=== PATIENT | female | born 1960 | race Caucasian/White ===

== ENCOUNTER → 2020-05-10 19:43 | Outpatient (ROUT) | payer OTHER, SELFPAY ==
[2020-05-10 19:59] LABS: Add Manual Diff / Slide Review NO; Basophils Absolute Auto 0 /uL (0-100); Basophils Percent Auto 0.4 % (0-2); Eosinophils Absolute Auto 100 /uL (0-450); Eosinophils Percent Auto 0.8 % (2-4); Hematocrit 41.2 % (36-46); Hemoglobin 13.8 g/dL (12.0-16.0); Lymphocytes Absolute Auto 1900 /uL (1100-4500); Lymphocytes Percent Auto 29.5 % (25-40); Mean Corpuscular HGB Conc 33.4 % (30-36); Mean Corpuscular Hemoglobin 29.2 PG (26-34); Mean Corpuscular Volume 87.2 fL (80-100); Monocytes Absolute Auto 600 /uL (0-900); Monocytes Percent Auto 8.5 % (3-14); Neutrophils Absolute Auto 3900 /uL (1500-7000); Neutrophils Percent Auto 60.8 % (50-75); Platelet Count 180 X10^3/uL (150-400); Red Blood Cell Count 4.72 X10^6/uL (4.0-5.2); Red Cell Distribution Width 12.9 % (11.6-14.8); White Blood Cell Count 6.5 X10^3/uL (4.5-11.0)
[2020-05-10 20:05] LABS: Alanine Aminotransferase 32 IU/L (<35); Albumin 4.2 g/dL (3.5-5.0); Albumin Globulin Ratio 1.8 (1.0-2.8); Alkaline Phosphatase 76 U/L (38-126); Aspartate Aminotransferase 33 IU/L (14-36); BUN Creatinine Ratio 22.6 (6-22); Bilirubin Total 0.5 mg/dL (0.2-1.3); Blood Urea Nitrogen 21 mg/dL (7-17); Calcium 9.8 mg/dL (8.4-10.2); Carbon Dioxide 26 mmol/L (22-32); Chloride 107 mmol/L (98-107); Cholesterol 187 mg/dL (140-199); Estimated Glomerular Filt Rate > 60.0 mL/min (>60); Globulin 2.3 g/dL (1.7-4.1); Glucose 93 mg/dL (70-100); HDL Cholesterol 69 mg/dL (40-60); HEMOLYSIS < 15 (0-50); LDL Cholesterol Calculated 84 mg/dL (<100); Potassium 4.2 mmol/L (3.4-5.1); Sodium 138 mmol/L (137-145); Total Protein 6.5 g/dL (6.3-8.2); Triglycerides 171 mg/dL (35-150)
[2020-05-10 20:13] LABS: NT-proBNP (BNP-Adult 18+) 121 pg/mL (<125)
[2020-05-10 20:20] LABS: Vitamin D 25 Hydroxy (D3) 23.6 ng/mL (30.0-100.0)
== END ==
PROVIDERS: Visit Provider Internal Medicine
DX: Z13.220 Encounter for screening for lipoid disorders (principal); Z85.820 Personal history of malignant melanoma of skin; I10 Essential (primary) hypertension; G47.33 Obstructive sleep apnea (adult) (pediatric); R60.9 Edema, unspecified
CPT/HCPCS: 80053; 80061; 82306; 83880; 84443; 85025

== ENCOUNTER → 2020-06-30 15:45 | Outpatient (ROUT) | payer OTHER, SELFPAY ==
[2020-06-30 16:15] LABS: Cholesterol 187 mg/dL (140-199); HDL Cholesterol 74 mg/dL (40-60); LDL Cholesterol Calculated 98 mg/dL (<100); Triglycerides 76 mg/dL (35-150)
== END ==
PROVIDERS: Visit Provider Internal Medicine
DX: Z13.220 Encounter for screening for lipoid disorders (principal)
CPT/HCPCS: 80061

== ENCOUNTER → 2020-09-01 08:30 | Outpatient (CLI) | payer OTHER, SELFPAY ==
--- NOTE | 2020-09-01 | DI.ECHO.S_ITS ---
[facility]---------+ [facility] +---------+ : : [address] : : : [place] : : : : [id number] : : : : Phone: [phone]+ Echocardiogram Report + + :Name: ELAINE NORRIS Study Date: 09/01/2020 Height: 70.5 in: :[facility] Weight: 275 lb : : Gender: Female BSA: 2.4 m2 : :: 1960 Age: 59 yrs BP: 142/88 mmHg: :Reason For Study: HYPERTENSION : :Ordering Physician: NICHELLE EVANS : :L Performed By: Laura Tomlinson : :Referring: NICHELLE EVANS L : + + Interpretation Summary The left ventricle is normal in size and wall thickness. Left ventricular systolic function appears normal without focal wall motion abnormalities. The ejection fraction is estimated to be 60-65%. Diastolic parameters suggest a relaxation abnormality of the left ventricle, consistent with probable normal filling pressures. The right ventricle is normal in size and function. Pulmonary artery pressures cannot be estimated because of the lack of a measurable TR jet velocity but the IVC suggests a CVP of around 3 mmHg. The left atrium is mildly dilated. Right atrial size is normal. There is mild mitral regurgitation. There is no other significant valvular heart disease. The aortic root is normal size. Procedure: A two-dimensional transthoracic echocardiogram with color flow and Doppler was performed. The study quality was technically adequate. There is no prior echocardiogram noted for this patient. The patient was in sinus rhythm with heart rates between 66-72 bpm during the exam. Left Ventricle: The left ventricle is normal in size and wall thickness. Left ventricular systolic function appears normal without focal wall motion abnormalities. The ejection fraction is estimated to be 60-65%. Diastolic parameters suggest a relaxation abnormality of the left ventricle, consistent with probable normal filling pressures. Right Ventricle: The right ventricle is normal in size and function. Atria: The left atrium is mildly dilated. Right atrial size is normal. There is no Doppler evidence for an interatrial shunt. Mitral Valve: The mitral valve is normal in structure and function. There is mild mitral regurgitation. Aortic Valve: The aortic valve is trileaflet. The aortic valve opens well. There is no aortic valve stenosis. No aortic regurgitation is present. Tricuspid Valve: The tricuspid valve is normal in structure and function. There is mild tricuspid regurgitation. Pulmonary artery pressures cannot be estimated because of the lack of a measurable TR jet velocity but the IVC suggests a CVP of around 3 mmHg. Pulmonic Valve: The pulmonic valve leaflets are thin and pliable; valve motion is normal. There is no pulmonic valvular regurgitation. There is no other significant valvular heart disease. Great Vessels: The aortic root is normal size. The dimensions of the ascending aorta are normal. The IVC is of normal diameter and collapses greater than 50% with a sniff. This suggests a low right atrial pressure of 3 mm Hg. Pericardium/ Pleura There is no pericardial effusion. There is no pleural effusion. MMode/2D Measurements & Calculations LVIDd: 5.3 cm LVOT diam: 2.2 cm LVIDs: 3.3 cm Ao root diam: 3.4 cm FS: 37.2 % asc Aorta Diam: 3.1 cm EPSS: 1.1 cm Ao Arch Diam (Prox Trans): 2.7 cm IVSd: 1.0 cm LVPWd: 0.84 cm LV robles. diameter/BSA (cm/m^2): 2.2 LV sys. diameter/BSA (cm/m^2): 1.4 LA A2 area: 30.6 cm2 RA long axis: 5.2 cm LA A4 area: 22.9 cm2 RA area: 18.6 cm2 LA length (vol): 6.1 cm RA vol: 56.8 ml LA vol: 96.9 ml RA : 23.6 ml/m2 LA vol index: 40.4 ml/m2 IVC diam: 1.5 cm RVD1 (basal): 3.9 cm TAPSE: 2.0 cm Doppler Measurements & Calculations Ao V2 max: 115.2 cm/sec LVOT Max Jose: 104.6 cm/sec Ao V2 mean: 80.7 cm/sec LV V1 max P.4 mmHg Ao max P.3 mmHg LV V1 VTI: 23.9 cm Ao mean P.9 mmHg ABIODUN(I,D): 3.6 cm2 Ao V2 VTI: 26.1 cm ABIODUN(V,D): 3.6 cm2 sev ratio: 0.92 ABIODUN indexed to BSA (cm^2/m^2): 1.5 MV E max jose: 67.9 cm/sec PA V2 max: 67.9 cm/sec MV A max jose: 75.1 cm/sec PA V2 mean: 49.0 cm/sec MV E/A: 0.90 PA mean P.1 mmHg Med Peak E' Jose: 7.9 cm/sec PA pr(Accel): 19.1 mmHg E/E' med: 8.6 Lat Peak E' Jose: 11.3 cm/sec E/E' lat: 6.0 E/e' average: 7.3 MV dec time: 0.18 sec SV(LVOT): 94.8 ml Reading Physician:05:34 PM
== END ==
PROVIDERS: PCP Physician Assistant; Referring Provider Internal Medicine; Visit Provider Internal Medicine
DX: I10 Essential (primary) hypertension (principal)
CPT/HCPCS: 93306

== ENCOUNTER → 2020-10-25 08:41 | Outpatient (CLI) | payer OTHER, SELFPAY ==
--- NOTE | 2020-10-25 | DI.RAD.S_ITS ---
PROCEDURE: XR CHEST 2V INDICATIONS: DRY COUGH TECHNIQUE: 2 views of the chest were acquired. COMPARISON: None. FINDINGS: Surgical changes and devices: None. Lungs and pleura: Lungs are clear. No pleural effusions or pneumothorax. Mediastinum: Mediastinal contours are normal. Heart size is normal. Bones and chest wall: No suspicious bony abnormalities. Soft tissues appear unremarkable. IMPRESSION: No acute cardiopulmonary disease process. Dictated by: Denise Beauchamp MD, PhD on 10/25/2020 at 12:15 Approved by: Denise Beauchamp MD, PhD on 10/25/2020 at 12:16
[2020-10-25 09:57] LABS: Alanine Aminotransferase 39 IU/L (<35); Albumin 4.2 g/dL (3.5-5.0); Albumin Globulin Ratio 1.8 (1.0-2.8); Alkaline Phosphatase 63 U/L (38-126); Aspartate Aminotransferase 35 IU/L (14-36); BUN Creatinine Ratio 20.7 (6-22); Bilirubin Total 0.5 mg/dL (0.2-1.3); Blood Urea Nitrogen 18 mg/dL (7-17); Calcium 9.1 mg/dL (8.4-10.2); Carbon Dioxide 26 mmol/L (22-32); Chloride 106 mmol/L (98-107); Estimated Glomerular Filt Rate > 60.0 mL/min (>60); Globulin 2.4 g/dL (1.7-4.1); Glucose 126 mg/dL (70-100); HEMOLYSIS < 15 (0-50); Potassium 4.3 mmol/L (3.4-5.1); Sodium 138 mmol/L (137-145); Total Protein 6.6 g/dL (6.3-8.2)
[2020-10-31 15:20] LABS: Cholesterol 185 mg/dL (140-199); HDL Cholesterol 56 mg/dL (40-60); LDL Cholesterol Calculated 113 mg/dL (<100); Triglycerides 80 mg/dL (35-150)
== END ==
PROVIDERS: PCP Physician Assistant; Referring Provider Physician Assistant; Visit Provider Physician Assistant
DX: R05 Cough (principal); I10 Essential (primary) hypertension; E78.2 Mixed hyperlipidemia
CPT/HCPCS: 36415; 71046; 80053; 80061

== ENCOUNTER → 2022-08-08 10:17 | Outpatient (CLI) | payer OTHER, SELFPAY | PROVIDERS: PCP Physician Assistant; Visit Provider Nurse Practitioner Family | DX: R30.0 Dysuria (principal) | CPT/HCPCS: 87086 ==

== ENCOUNTER → 2022-08-21 06:45 | Outpatient (CLI) | payer OTHER, SELFPAY ==
--- NOTE | 2022-08-21 | DI.US.S_ITS ---
PROCEDURE: US RENAL COMPLETE INDICATIONS: LEFT FLANK PAIN TECHNIQUE: Real-time scanning was performed of the kidneys and bladder, with image documentation. COMPARISON: None. FINDINGS: Kidneys: Kidneys are normal in size. Right kidney measures 10.4 cm long; left kidney measures 10.2 cm long. Right renal cortical thickness is 1.8 cm; left renal cortical thickness is 1.8 cm. Renal cortical echotexture is normal. No hydronephrosis or nephrolithiasis. No suspicious solid mass lesions. Bladder: Pre-void bladder volume is 60 mL. Post-void residual measurement was not obtained, as the patient felt no need to void. Pre-void images demonstrate no intraluminal masses or stones. On pre-void images, both ureteral jets are noted with color Doppler interrogation. (Of note, ureteral jets may not be detectable in up to 25% of cases due to insufficient differences in specific gravity between ureteral and bladder urine). Miscellaneous: No free pelvic fluid. There is a shadowing gallstone seen that measures to 3.1 cm. No pericholecystic fluid is seen. There is no wall thickening or sonographic Jane sign. Increased liver echogenicity is noted. This study is limited by body habitus. IMPRESSION: Negative for hydronephrosis. Potential urinary retention, with the patient unable to void, despite a bladder volume measurement of 60 cc. A single 3.1 cm gallstone is seen, yet without additional sonographic signs of cholecystitis. Negative for biliary dilatation. Please correlate with physical examination findings, patient presentation, and laboratory values. The liver demonstrates increased echogenicity. This finding is nonspecific, yet it is most commonly attributed to fatty infiltration. Dictated by: José Miguel Natarajan M.D. on 08/21/2022 at 8:24 Approved by: José Miguel Natarajan M.D. on 08/21/2022 at 8:27
== END ==
PROVIDERS: PCP Physician Assistant; Referring Provider Physician Assistant; Visit Provider Physician Assistant
DX: R10.9 Unspecified abdominal pain (principal); N39.0 Urinary tract infection, site not specified; K80.20 Calculus of gallbladder without cholecystitis without obstruction
CPT/HCPCS: 76770

== ENCOUNTER → 2022-09-05 06:42 | Outpatient (CLI) | payer OTHER, SELFPAY ==
--- NOTE | 2022-09-05 | DI.CT.S_ITS ---
PROCEDURE: CT ABDOMEN PELVIS W CON INDICATIONS: UTI W/O HEMATURIA / LEFT FLANK PAIN TECHNIQUE: After the administration of oral and IV contrast, axial sections were acquired from the lung bases to the pubic symphysis. Coronal and sagittal reformats were performed. For radiation dose reduction, the following was used: automated exposure control, adjustment of mA and/or kV according to patient size. COMPARISON: [facility], US, US RENAL COMPLETE, 08/21/2022, 7:05. FINDINGS: Image quality: Excellent. Lung bases: No pleural effusion. -Right middle lobe pulmonary nodule measuring 0.7 cm, (3/6). -Right lung base pulmonary nodule measuring 0.6 cm, (3/3). -Left lung base pulmonary nodule measuring 0.7 cm, (3/8). Heart: No significant findings. ABDOMEN: Liver: Hypoechoic focus at the inferior right margin of the liver measuring 1.1 cm, (2/38). Gallbladder: Not significantly distended. There is rim thickening at the gallbladder fundus, (2/29). No pericholecystic fluid. Gallstones seen on prior ultrasound is not appreciated. Biliary ducts: Not dilated. Pancreas: Hypoechoic focus in the tail the pancreas measuring 2 cm, (2/27). This is ill-defined and may have an exophytic component projecting towards the stomach. Concern for upstream pancreatic ductal dilatation. There is also smaller hypodense focus in the body of the pancreas, (2/29). Spleen: No splenomegaly Adrenal Glands: No nodule. Kidneys and Ureters: No hydronephrosis. No solid renal mass. No obvious kidney stones. Stomach and Bowel: Stomach is not distended. No small bowel obstruction. Fat density at the transverse colon. The appendix is not dilated. Peritoneum: Minimal nodular thickening at the right peritoneal reflection, (4/43). Left peritoneal nodule measuring 1.7 cm, (2/47). Small volume of ascites. Ventral Wall: No hernia. Abdominal Nodes: No retroperitoneal or mesenteric adenopathy by size criteria. Vessels: Aorta and inferior vena cava are normal in size. No filling defect in the portal vein. PELVIS: Pelvic Organs: Uterus is absent. Bladder: No stones seen. Pelvic Nodes: No enlarged lymph nodes. Miscellaneous: No inguinal hernias are seen. Bones: No suspicious lesion. IMPRESSION: 1. Ill-defined hypodense lesion in the tail the pancreas measuring approximately 2 cm. This is concerning for pancreatic adenocarcinoma. -Recommend CT and/or MRI pancreas protocol for further characterization. 2. Small peritoneal nodules. Trace ascites in the pelvis. These findings could be due to peritoneal carcinomatosis. 3. Small hypodense focus in the inferior margin of the right liver. Hepatic metastasis could have this appearance. -This could be further characterized with MRI. 4. Pulmonary nodules x3 measuring up to 0.7 cm. This is indeterminate for metastatic disease. 5. No hydronephrosis. No kidney stones identified. 6. Thickening at the gallbladder fundus. The previously seen gallstone is not appreciated. -Consider gallbladder ultrasound to exclude adenomyomatosis. Comment: Findings were discussed with Dr. Gomez at time of dictation. Dictated by: Curry Saldana M.D. on 09/05/2022 at 8:56 Approved by: Curry Saldana M.D. on 09/05/2022 at 9:30
== END ==
PROVIDERS: PCP Physician Assistant; Referring Provider Physician Assistant; Visit Provider Physician Assistant
DX: K86.9 Disease of pancreas, unspecified (principal); N39.0 Urinary tract infection, site not specified; R93.89 Abnormal findings on diagnostic imaging of other specified body structures; R10.9 Unspecified abdominal pain; R91.8 Other nonspecific abnormal finding of lung field
CPT/HCPCS: 74177; Q9967